=== PATIENT | female | born 1950 | race Caucasian/White ===

== ENCOUNTER → 2017-04-24 | Day surgery (SDC) | payer MEDICARE, BC ==
[~2017-04-24] MED LIST: BUPIVACAINE HCL PF 0.5% 30 ML VIAL ONE; BUPIVACAINE HCL PF 0.75% 30 ML VIAL ONE; CLON1TAB PO; CYCL1TAB29 PO; FLUT1SPR5 EACH NARE; GABA300C5 PO; HYDR-3288 PO; LINA2.5T5 PO; LOSA50TA2 PO; METF500T PO; MULT-159 PO; PROPOFOL 200 MG/20 ML AMP IV ONE; ROSU5 PO; TRAM50TA PO; TRIA1SPR5 EACH NARE; TRIAMCINOLONE ACETONIDE 40 MG/ML VIAL I-ARTICULR ONE; VITA100036 PO; XOPEAER4 INH; diphenhydrAMINE HCL 50 MG/ML VIAL IV ONE; methylPREDNISolone ACETATE 40 MG/ML VIAL I-ARTICULR ONE
--- NOTE | 2017-04-27 11:49 | M6 ---
cc: GERSON WHITAKER M.D. DATE: 04/24/2017 1950 PROCEDURE Fluoroscopically guided injection bilateral lumbar facet joints (bilateral L3-4, L4-5 and L5-S1 facet joints). History and physical was completed and signed. Consent was signed. Procedure site was marked. Medications were listed and reconciled. Pain score was recorded. Allergies were noted. Time out was taken. Fluoroscopy time was recorded where applicable. Sedation was administered or directed by Dr. Whitaker. The patient was given oxygen. The patient was monitored by a registered nurse. Total procedure time was greater than 15 minutes. IV was started, blood pressure cuff, pulse oximeter and EKG were applied. The patient was placed in the prone position on a Alcides table, sedated with small amounts of propofol titrated to effect. Vital signs were monitored and remained stable throughout the procedure. The lumbar area was prepped with alcohol and 10% Betadine solution and draped with sterile drapes. Fluoroscopy was used in a Jarvis dog view to clearly visualize the bilateral lumbar facet joints at L3-4, L4-5 and L5-S1. Separate sterile 3-1/2-inch 25-gauge spinal needles were advanced into these joints under fluoroscopic guidance. There was negative aspiration for blood or any other type of fluid and at each location the patient was given 1 mL of Marcaine 0.75% which contained 10 mg of Kenalog. Following the procedure the patient was taken to the recovery room with stable vital signs, neurologically intact. She will be evaluated immediately and with followup to determine if she has a subjective decrease in her usual pain and a corresponding objective increase in her functional capabilities. WJoe Whitaker MD WRM/TLL /9:01 AM /11:50 AM
== END | disposition home or self-care (01) ==
LOC: PHSDC 07:29
PROVIDERS: ATTEND Pain Medicine Interventional Pain Medicine
DX: M54.5 Low back pain (principal); Z91.041 Radiographic dye allergy status
CPT/HCPCS: 64493; 64494; 64495; 99152; J1030; J1200; J3301

== ENCOUNTER → 2017-05-14 | Day surgery (SDC) | payer MEDICARE, BC ==
[~2017-05-14] MED LIST changes: -BUPIVACAINE HCL PF 0.5% 30 ML VIAL ONE; -BUPIVACAINE HCL PF 0.75% 30 ML VIAL ONE; -GABA300C5 PO; -HYDR-3288 PO; +LIDOCAINE HCL 1% PF 30 ML VIAL INFIL ONE; -LINA2.5T5 PO; +SODIUM CHLORIDE 0.9% 10 ML VIAL ONE; -TRIA1SPR5 EACH NARE; -TRIAMCINOLONE ACETONIDE 40 MG/ML VIAL I-ARTICULR ONE; +TRIAMCINOLONE ACETONIDE 40 MG/ML VIAL NERV BLOCK ONE; -diphenhydrAMINE HCL 50 MG/ML VIAL IV ONE; -methylPREDNISolone ACETATE 40 MG/ML VIAL I-ARTICULR ONE; +methylPREDNISolone ACETATE 80 MG/ML VIAL ONE
--- NOTE | 2017-05-16 22:47 | M6 ---
cc: Zain WHITAKER DATE 05/14/2017 1950 PROCEDURE Fluoroscopically guided L5-S1 translaminar epidural steroid injection. History and physical was completed and signed. Consent was signed. Procedure site was marked. Medications were listed and reconciled. Pain score was recorded. Allergies were noted. Time out was taken. Fluoroscopy time was recorded where applicable. Sedation was administered or directed by Dr. Whitaker. The patient was given oxygen. The patient was monitored by a registered nurse. Total procedure time was greater than 15 minutes. IV was started, blood pressure cuff, pulse oximeter and EKG were applied. The patient was placed and the prone position on a Alcides table sedated with small amounts of propofol titrated to effect. Vital signs were monitored and remained stable throughout the procedure. Lumbar area was prepped with alcohol and 10% Betadine solution and draped with sterile drapes. Fluoroscopy was used to visualize the L5-S1 translaminar space. The skin was infiltrated with 1% Xylocaine using a 27 gauge needle, then a 3-1/2-inch 18-gauge Medina needle was advanced using fluoroscopic guidance and the [id number]-dr-[id number] technique into the epidural space at L5-S1 slightly to the right of the midline. There was negative aspiration for blood or any other type of fluid. The patient was given 10 mL of 0.5% Xylocaine 80 mg of Depo-Medrol. Following this, the patient was taken to the recovery room with stable vital signs neurologically intact. MD NEFTALI Rose/ /9:48 AM /10:44 PM
== END | disposition home or self-care (01) ==
LOC: PHSDC 07:56
PROVIDERS: ATTEND Pain Medicine Interventional Pain Medicine
DX: M54.5 Low back pain (principal)
CPT/HCPCS: 62323; 99152; J1040; J3301

== ENCOUNTER → 2017-06-16 | Day surgery (SDC) | payer MEDICARE, BC ==
[~2017-06-16] MED LIST changes: +ASPI-110 PO
--- NOTE | 2017-06-19 16:24 | M6 ---
cc: GERSON WHITAKER M.D. DATE: 06/16/2017 DATE OF : 1950 PROCEDURE Fluoroscopically guided L5-S1 translaminar epidural steroid injection. History and physical was completed and signed. Consent was signed. Procedure site was marked. Medications were listed and reconciled. Pain score was recorded. Allergies were noted. Time out was taken. Fluoroscopy time was recorded where applicable. Sedation was administered or directed by Dr. Whitaker. The patient was given oxygen. The patient was monitored by a registered nurse. Total procedure time was greater than 15 minutes. IV was started, blood pressure cuff, pulse oximeter and EKG were applied. The patient was placed in the prone position on a Alcides table sedated with small amounts of propofol titrated to effect. Vital signs were monitored and remained stable throughout the procedure the lumbar area was prepped with alcohol and 10% Betadine solution, draped with sterile drapes. Fluoroscopy was used to visualize the L5-S1 translaminar space. The skin was infiltrated with 1% Xylocaine using a 27 gauge needle then a 3-1/2-inch 18-gauge Medina needle was advanced using fluoroscopic guidance and the ayhw-nr-iibtcrtgqn technique into the epidural space at L5-S1 slightly to the right of the midline. There was negative aspiration for blood or any other type of fluid and the patient was given 10 mL of half percent Xylocaine 80 mg of Depo-Medrol. Following this the patient was taken to the recovery room with stable vital signs neurologically intact. W. MD NEFTALI Romero/gabby /10:03 AM /4:12 PM
== END | disposition home or self-care (01) ==
LOC: PHSDC 08:15
PROVIDERS: ATTEND Pain Medicine Interventional Pain Medicine
DX: M79.669 Pain in unspecified lower leg (principal)
CPT/HCPCS: 62323; 99152; J1040; J3301

== ENCOUNTER → 2017-07-01 | Day surgery (SDC) | payer MEDICARE, BC ==
--- NOTE | 2017-07-01 10:12 | M6 ---
cc: GERSON WHITAKER M.D. DATE 07/01/2017 DATE OF 1950 PROCEDURE Fluoroscopically guided L5-S1 translaminar epidural steroid injection. PROCEDURE NOTE History and physical was completed and signed. Consent was signed. Procedure site was marked. Medications were listed and reconciled. Pain score was recorded. Allergies were noted. Time out was taken. Fluoroscopy time was recorded where applicable. Sedation was administered or directed by Dr. Whitaker. The patient was given oxygen. The patient was monitored by a registered nurse. Total procedure time was greater than 15 minutes. IV was started, blood pressure cuff, pulse oximeter and EKG were applied. The patient was placed in the prone position on a Alcides table, sedated with small amounts of propofol titrated to effect. Vital signs were monitored and remained stable throughout the procedure. The lumbar area was prepped with alcohol and 10% Betadine solution and draped with sterile drapes. Fluoroscopy was used to visualize the L5-S1 translaminar space. The skin was infiltrated with 1% Xylocaine using a 27 gauge needle. Then a 3-1/2-inch 18-gauge Medina needle was advanced using fluoroscopic guidance and the euds-zh-rbbpguhzqo technique into the epidural space at L5-S1 slightly to the right of the midline. There was negative aspiration for blood or any other type of fluid. At that location, the patient was given 10 mL of half percent Xylocaine, 80 mg of Depo-Medrol. Following this, the patient was taken to the recovery room with stable vital signs neurologically intact. WMD NEFTALI Sanchez/SEEMA /9:36 AM /10:03 AM
== END | disposition home or self-care (01) ==
LOC: PHSDC 08:27
PROVIDERS: ATTEND Pain Medicine Interventional Pain Medicine
DX: M79.606 Pain in leg, unspecified (principal)
CPT/HCPCS: 62323; 99152; J1040; J3301